=== PATIENT | male | born 1965 | race Caucasian/White ===

== ENCOUNTER 2018-12-02 15:29 | Inpatient (IN) | payer OTHER ==
[~2018-12-02] VITALS: Ht 175.3 cm; Wt 75.8 kg
--- NOTE | ~2018-12-02 | HC ---
[facility] [place] [address] CONSULTATION Name: TASIASEPIDEH Room #: 353-[facility] IN M.R.#: [id number] Admission: 12/02/18 ������������������ Attend Phys: Oscar Sanchez Discharge: ������������������ Date of : 65 Report #: [id number] THIS REPORT FOR: //name// CC: Oscar Cruz DATE OF SERVICE: 12/04/2018 HISTORY OF PRESENT ILLNESS: A 53-year-old male we are asked to see for withdrawal and alcohol and substance dependence. The patient has been here for several days now getting Ativan at a pretty good rate p.r.n., saying that he is not calm, he is not doing well, even though he is not showing signs of alcohol withdrawal. He has gotten significant amount of Ativan and actually fell today. He was so out of it. He is now in soft restraints to keep him safe. The patient is not able to discuss with me significant amount of features. He does state he has some abdominal discomfort. He feels like his skin is crawling and he has general aches. He will not tell me how much opiates he was on, but he says they were not long-acting opiates, they were not Suboxone and it was not methadone. He says it was mostly Percocet and he was on Ativan and BuSpar, though his report is somewhat unreliable given his state today since he is a little bit confused. The patient says he has MS and that is why he was given these medications, which does not seem to fit his presentation. ALLERGIES: No known drug allergies. FAMILY PSYCHIATRIC HISTORY: Denies. SOCIAL HISTORY: The patient is a retired welder production line arc. He is . He has no support in town. He does not routinely see a psychiatrist. He does not feel that he is doing well. He also disagreed with me that he was getting medications to help with withdrawal. The patient is mildly confused. MENTAL STATUS EXAM: The patient is alert. He is oriented to being in a hospital, but he could not tell me which one and he missed the date, did not know that today was a holiday. He was confused and again had a recent fall and he is restless, but his vital signs are stable. As a matter of fact, over 24 hours, he has not been tachycardic and his blood pressure was normal. He does not appear to be showing severe alcohol withdrawal, nor does he have any dilated pupils. At best, he has some mild piloerection. He does complain of abdominal pain and generalized aches, however. The patient has received significant amount of medications over the past 24 hours. He has received 20 mg Ativan in the last 24 hours. The patient is not agitated. He is restless, is confused. He shows no rigidity or tremors. His thought process is perseverative and circumstantial thought [address] [address] CONSULTATION Name: TASIASEPIDEH Room #: 353-[facility] IN M.R.#: [id number] Admission: 12/02/18 ������������������ Attend Phys: Oscar Sanchez Discharge: ������������������ Date of : 65 Report #: [id number] content. He did not exhibit any type of hallucinations at this time. INSIGHT AND JUDGMENT: Impaired. IMPRESSION: AXIS I: 1. Delirium. 2. Possible alcohol and opiate withdrawal. AXIS II: Deferred. AXIS III: He says MS as his past history. AXIS IV: Severe. AXIS V: Global Assessment of Functioning currently 30%. PLAN: I think what we have seen here is, he is not showing significant vital sign disturbances. He is not showing a lot of classical features of alcohol withdrawal. His state of being uncomfortable might be more related to actually more of the opiate withdrawal side. Either way, I think the amount of Ativan and benzodiazepines is an indication that more is not necessarily better. We need to reduce the amount of benzodiazepines he is getting. So, we will try and do so by using Seroquel on a regular basis to calm down his agitation and some of his delirium, his agitation could be helped with a scheduled amount. So, we will add some Seroquel scheduled and hold it if he is sedated. I believe use of low dose antipsychotic will help with reducing the amount of Ativan and benzodiazepines and that will actually help his mental status improve at this point, as I do not see significant concern for delirium tremens. This is not severe alcohol or benzodiazepine withdrawal at this point. So, we are seeing no evidence of vital signs being elevated. No tremor, no diaphoresis. At best, this is some opiate withdrawal where he is feeling uncomfortable, but we have to be cutting back on his benzodiazepines rather than an increasing them, so you will see my orders reflect that goal by reducing the frequency of the available Ativan and also using Seroquel. We will have IM Haldol just in case for severe agitation only. We will stop the Librium. Do not use Ambien. Thank you for the consult. ��������������������������������������������� ���������������������������������������� By: ��������������������������������������������� 0925 16 Tim Velazquez MD /makenzie
[2018-12-02 16:11] LABS: ABSOLUTE NEUTROPHILS 16.4 thou/uL (1.4-8.2); BASOPHILS 0.4 % (0.0-2.0); HEMATOCRIT 41.4 % (42.0-52.0); HEMOGLOBIN 14.7 gm/dL (14.0-18.0); LYMPHOCYTES 7.6 % (24.0-44.0); MCH 33.5 pg (26.0-34.0); MCHC 35.6 g/dL (28.0-37.0); MCV 94.1 fL (80.0-100.0); MONOCYTES 6.8 % (1.0-8.0); PLATELET COUNT 269 thou/uL (150-400); POLYS 85.2 % (36.0-66.0); RDW 13.4 % (10.5-14.5); WBC 19.3 thou/uL (4.0-11.0)
[2018-12-02 16:25] LABS: ANION GAP 12 mmol/L (7-16); BUN 23 mg/dL (7-18); CALCIUM 10.5 mg/dL (8.5-10.1); CHLORIDE 98 mmol/L (98-107); CO2 27 mmol/L (21-32); CREATININE 0.9 mg/dL (0.7-1.3); GLUCOSE 106 mg/dL (74-106); POTASSIUM 3.7 mmol/L (3.5-5.1); SODIUM 137 mmol/L (136-145)
[2018-12-02 16:33] LABS: ALBUMIN 4.2 g/dL (3.4-5.0); LIPASE 80 U/L (73-393); SALICYLATE 3.7 mg/dL (2.8-20.0); SGOT 44 U/L (15-37); SGPT 31 U/L (30-65); TOTAL BILIRUBIN 1.9 mg/dL (<0.1-1.0); TOTAL PROTEIN 7.4 g/dL (6.4-8.2); TROPONIN-I <0.06 ng/mL (<0.06)
[2018-12-02 16:46] LABS: PHOSPHORUS 3.2 mg/dL (2.5-4.9)
[2018-12-02 17:00] VITALS: BP 138/87
[2018-12-02] MEDS ORDERED: FLEXERIL PO (17:02)
[2018-12-02] MEDS ORDERED: TRAMADOL 50 MG50 MG PO (17:03)
[2018-12-02] MEDS ORDERED: NEURONTIN 300300 M1 PO (17:03)
[2018-12-02] MEDS ORDERED: HYDROXYZINE HCL25 M1 PO (17:03)
[2018-12-02] MEDS ORDERED: ANTIVERT25 MG PO (17:03)
[2018-12-02] MEDS ORDERED: ELIQUIS5 MG PO (17:04)
[2018-12-02] MEDS ORDERED: BUSPIRONE HCL10 MG PO (17:04)
[2018-12-02] MEDS ORDERED: GABAPENTIN 100100 MG PO (17:04)
[2018-12-02] MEDS ORDERED: PEPCID20 MG PO (17:04)
[2018-12-02] MEDS ORDERED: ULTRAM 50MG TAB50 MG PO (17:04)
[2018-12-02] MEDS ORDERED: LYRICA 75 MG CA75 MG PO ×2 (17:05)
[2018-12-02 17:30] VITALS: BP 146/101
[2018-12-02 17:42] LABS: FOLIC ACID 15.9 ng/mL (8.6-58.9)
[2018-12-02 19:15] VITALS: BP 126/84
--- NOTE | 2018-12-02 19:27 | NUR ---
Patient arrived from ER via cart. Able to transfer with moderate assist to bed. Patient unsteady on feet. VSS. SR / ST with PVCs on telemetry. Alert and oriented x4. Pleasant and cooperative. Reports some anxiety. CIWA as ordered and treated with PRN Ativan. Banana bag infused, now IVF as ordered. Admission history and education completed. Bed alarm on, yellow socks and fall band in place. Fall precautions in place. Patient up with heavy one assist and gait belt to bathroom. Too early to determine progression towards POC. Will continue to monitor.
--- NOTE | 2018-12-02 22:00 | NUR ---
PATIENT BEHAVIOUR ESCALATING. FREQUENTLY SETTING OFF BED ALARM, UNABLE TO REASON WITH AND BECOMING VERBALLY AND PHYSICALLY COMBATIVE. sECURITY CALLED FOR ASSISTANCE. ORDERS RECEIVED FROM PROVIDER. NURSING OVERHEAD CRANE OPERATOR DURGA NOTIFIED, ORDERS RECEIVED. PATIENT PLACED ON BILATERAL SOFT WRIST RESTRAINTS APPLIED. LORAZEPA M AND HALDOL GIVEN.
[2018-12-02 23:30] VITALS: BP 106/62
[2018-12-03 03:50] VITALS: BP 103/60
--- NOTE | 2018-12-03 04:15 | NUR ---
Patient making slow progress towards outcome goals. CIWA 9-17 range, now off restraints, medicated with Lorazepam every 2 hours. Vital signs and rhythm stable. IVfluids infusing. Fall precautions in place.
[2018-12-03 06:33] LABS: HEMATOCRIT 37.1 % (42.0-52.0); HEMOGLOBIN 12.9 gm/dL (14.0-18.0); MCH 33.3 pg (26.0-34.0); MCHC 34.7 g/dL (28.0-37.0); RBC 3.87 mil/uL (4.50-6.00); RDW 13.4 % (10.5-14.5); WBC 9.5 thou/uL (4.0-11.0)
[2018-12-03 06:44] LABS: CREATININE 0.9 mg/dL (0.7-1.3); POTASSIUM 3.3 mmol/L (3.5-5.1)
[2018-12-03 06:58] LABS: CALCIUM 7.8 mg/dL (8.5-10.1)
[2018-12-03 07:30] VITALS: BP 119/63
[2018-12-03 11:30] VITALS: BP 99/57
[2018-12-03 16:17] VITALS: BP 105/73
--- NOTE | 2018-12-03 18:01 | NUR ---
Assumed care of Pt at 0700. Pt alert and oriented x2 in no acute distress. CIWA 13-15. incontinent. SR on telemetry. vitals stable. small appetite. calls out appropriately at times. will cont to monitor.
[2018-12-03 19:25] VITALS: BP 115/83
[2018-12-04] VITALS (7 sets, daily range): BP systolic 120–139; BP diastolic 75–91
--- NOTE | 2018-12-04 05:01 | NUR ---
ASSUMED CARE OF PATIENT AROUND MIDNIGHT. PATIENT SLEEPING UPON ASSESSMENT, AROUSABLE TO STIMULI, BUT UNABLE TO STAY AWAKE TO ANSWER QUESTIONS. NOT ABLE TO SCORE CIWA AT THAT TIME. ATTEMPTED TO ASSESS AGAIN AT 0200, PATIENT AGAIN UNABLE TO REMAIN AWAKE. 0400 ASSESSMENT, PATIENT C/O 8/10 HEADACHE, PINS/NEEDLES IN LOWER EXTREMITIES, NAUSEA, MODERATE ANXIETY, SLIGHT AGITATION, AND PATIENT STATED IT WAS WEDNESDAY: CIWA SCORE OF 17. LIBRIUM GIVEN, LORAZEPAM HELD. REPORTING COORDINATOR INFORMED. PATIENT IS MAKING SOME PROGRESS TOWARD GOALS, WILL CONTINUE TO MONITOR.
[2018-12-04 06:24] LABS: CALCIUM 7.5 mg/dL (8.5-10.1); CREATININE 0.6 mg/dL (0.7-1.3); PHOSPHORUS 2.6 mg/dL (2.5-4.9); POTASSIUM 3.4 mmol/L (3.5-5.1)
--- NOTE | 2018-12-04 07:12 | NUR ---
AT 0700, PATIENT'S BED ALARM SOUNDED. 2 information security associate AND 2 RNs RESPONDED, FIRST CULTURIST ABOUT TO ENTER ROOM, SOUND CAME FROM ROOM SOUNDING LIKE A THUD. PATIENT FOUND ON FLOOR. ALL 4 SIDE RAILS WERE UP AND ALL WERE CLOSED TO THE MIDDLE OF THE BED. PATIENT HAD CLIMBED OVER RAIL. PATIENT'S GAITBELT WAS APPLIED AND STAFF ASSISTED THE PATIENT WITH STANDING AND MOVING BACK TO BED. PATIENT SETTLED AGAIN AND ASSESSMENT DONE CHARTED IN POST-FALL INTERVENTION. NO CHANGE IN MENTAL STATUS, PATIENT C/O BACK PAIN RATED 9/10. NO ABRASIONS NOTED, NO BRUISING AT THIS TIME. TONSORIAL ARTIST ARCADIO CONTACTED. RESTRAINTS INITIATED. VITAL SIGNS NEAR BASELINE.
--- NOTE | 2018-12-04 13:22 | EKG ---
[address] [place] [place] [address] ELECTROCARDIOGRAM REPORT Name: SEPIDEH DOZIER Room #: 353-P AD[facility] IN M.R.#: [id number] ������������������ Admission: 12/02/18 ������������������ Attend Phys: Oscar Sanchez Discharge: ������������������ Date of : 65 Report #: [id number] ����������������������������������������������������������������� [id number] THIS REPORT FOR: //name// [facility] ED Test Date: 2018-12-02 Test Time: 15:40:28 Pat Name: SEPIDEH DOZIER Department: Room: 353 Gender: M Clearance Rep: WG : 1965 Requested By: Salazar Pardo Order Number: [id number] MD: Yovani Solorzano Measurements Intervals [place] Rate: 103 P: 65 WI: 144 QRS: 57 QRSD: 84 T: 51 QT: 341 QTc: 447 Interpretive Statements Sinus tachycardia Otherwise normal tracing No previous ECG available for comparison Electronically Signed On 12-04-2018 13:22:28 CDT by Yovani Solorzano [email or web address] ��������������������������������������������� <ELECTRONICALLY SIGNED> ���������������������������������������� By: Yovani Solorzano MD, [facility] ��������������������������������������������� 12/04/18 1322 1540 1540 Yovani Solorzano MD, FACC /EPI
--- NOTE | 2018-12-04 15:33 | NUR ---
PATIENT CONT OON CIWA PROTOCOL WITH REDUCE AMOUNT OF LORAZEPAM. HE HAS NOT SLEPT ALL DAY. HE CONT ON RESTRAINTS. KEEPS FIGHTING. HE ATTEPTED TO PULL OUT HIS CATHETER. HE DID SUCCESSFULLY PULL OUT HIS IV.TAKES OFF HIS CLOTHS AND CONT ATTEMPT TO LEAVE THE BED. HE IS NOT EASILY REDIRECTED. CONT ON RESTRAINTS AND HAVE TO BE REAPPLIED SO OFTEN HE KEEPS ON FIGHTING TO TAKE THEM OFF. HE HAS BEEN GIVEN MEDS PRESCRIBED BUT SO FAR NO IMPROVEMENT.
[2018-12-04 23:00] LABS: URINE BILIRUBIN NEGATIVE (Negative); URINE BLOOD 3+ (Negative); URINE CLARITY CLEAR; URINE COLOR YELLOW; URINE GLUCOSE-RANDOM* NEGATIVE (Negative); URINE KETONES NEGATIVE (Negative); URINE NITRITE-REFLEX NEGATIVE (Negative); URINE PROTEIN (DIPSTICK) NEGATIVE (Negative); URINE UROBILINOGEN 0.2 E.U./dl (0.2-1.0)
[2018-12-04 23:10] LABS: URINE LEUKOCYTES-REFLEX 1+ (Negative)
[2018-12-04 23:12] LABS: AMP/METHAMP Negative (Negative); BARBITURATES Negative (Negative); BENZODIAZEPINES POSITIVE (Negative); COCAINE Negative (Negative); METHADONE Negative (Negative); OPIATES Negative (Negative); PCP Negative (Negative)
[2018-12-04 23:44] LABS: BACTERIA-REFLEX 1-9 Few /HPF (None Seen); CASTS None Seen /LPF (None Seen); MUCUS 0-3 Light strn/LPF (None Seen); SQUAMOUS 0-3 Few /LPF (0-3)
[2018-12-04 23:45] LABS: CRYSTALS None Seen /LPF (None Seen)
[2018-12-05 04:10] VITALS: BP 138/80
--- NOTE | 2018-12-05 04:16 | NUR ---
RESTRAINT ORDER HAS BEEN RENEWED. SPOKE WITH SHEREE ERVIN AND LOOKED AT HR AND OTHER VITALS. SAID TO GIVE SOME INSTRUCTIONS TO TRY TO TRIAL HIM OFF. PT SLEPT MOST OF SHIFT AND HAD TO BE AROUSED TO TAKE EVENING MEDICATION. THE 0600 OXYCODONE WILL BE HELD TO SEE IF THAT HELPS INCREASE PTS ALERTNESS. COLLECTED URINE FROM AN ORDER THAT WAS GIVEN ON THE . AWAITING RESULTS. HOURLY ROUNDING AND Q2 CHECKS FOR THE RESTRAINTS. HR EARLIER IN SHIFT WERE IN 110-120 RANGE. OVERNIGHT THEY HAVE BEEN SB IN THE 50-60'S.
[2018-12-05 07:37] VITALS: BP 122/80
[2018-12-05 11:20] VITALS: BP 108/65
[2018-12-05 15:28] VITALS: BP 112/78
--- NOTE | 2018-12-05 16:04 | NUR ---
Assumed care of Pt at 0700. Pt AOX3 drowsy but following commands appropriately. succesful with restraint trials - now off restraints since 0800. mentation improving. no attempts to get out of bed thus far. not pulling at lines. eating meals appropriately. vitals stable. will cont to monitor. all fall precautions in place. frequent rounding. pt progressing toward poc goals.
[2018-12-05 19:00] VITALS: BP 98/60
[2018-12-06 04:18] VITALS: BP 94/60
--- NOTE | 2018-12-06 04:29 | NUR ---
FOLLOWING POC WITH PO MEDICATIONS AND PRN SEROQUEL. PT REQUESTED SANDWICH TRAY, ATE AND WENT TO SLEEP. AT 0100 PT TRYING TO CRAWL OUT OF BED AND SET BED ALARM OFF. PT ASKED FOR OXY AND EXPLAINED TO PT THAT IT WAS GIVEN AT 2030 AND NEXT DOSE IS AT 0600. PUT PT BACK TO BED, AND WITHIN 10 MINUTES LATER SET BED ALARM OFF. GAVE PT PRN HALIDOL AND PT AGITATION DECREASED AND PT IS NOW SLEEPING. WILL CONTINUE TO MONITOR.
[2018-12-06 06:58] VITALS: BP 95/62
--- NOTE | 2018-12-06 10:11 | NUR ---
ASSESSMENT: CM REVIEWED CHART AND MET WITH PATIENT AT THE BEDSIDE. PT WAS ADMITTED FOR ALCOHOL WITHDRAWAL. PT REPORTS HE WAS AT [facility] SN[facility] AND WAS GOING TO TRANSITION TO LIVING THERE AFTER. CM RECEIVED A VM FROM [facility] STATING THEY CANNOT ACCEPT PATIENT BACK. CM LEFT VM FOR LIASON FROM [facility] TO CONTACT CM TO FURTHER DISCUSS. PT WAS UPSET WHEN HE FOUND OUT THIS INFORMATION STATING HE WILL HAVE NO WHERE TO LIVE AND ALL OF HIS STUFF IS THERE. CM DISCUSSED HOW ANOTHER REFERRAL COULD BE SENT TO AN ALTERNATE SNF TO SEE IF THEY CAN ACCEPT. PT HAD NO PREFERENCE OF REFERRAL. CM FAXED NOTIFIED ARTIST MODEL TO SEND REFERRAL TO [facility]. CM WILL CONTINUE TO FOLLOW TO ASSIST NEEDED.
--- NOTE | 2018-12-06 10:34 | NUR ---
[facility] sent referral to [facility] for SNF, patient to dc today. [facility] contacted [facility] to make sure faxed referral was received.
[2018-12-06 11:09] VITALS: BP 111/77
[2018-12-06 15:17] VITALS: BP 97/61
[2018-12-06 19:47] VITALS: BP 120/82
[2018-12-07 04:11] VITALS: BP 117/73
--- NOTE | 2018-12-07 04:47 | NUR ---
ASSUMED CARE OF PT AT 1900. VS STABLE DOCUMENTED. AGITATED THROUGOUT SHIFT. GAVE SEVERAL PRNs W/ MINIMAL IMPROVEMENT. CIWA SCORES 7-9 DOCUMENTED. PT HAS BEEN RESTLESS ALL NIGHT, TRYING TO GET OUT OF BED ON HIS OWN, ANGRY W/ STAFF ABOUT BED ALARM AND ASSISTANCE TO BSC/BR. PT DENIED FEELING UNSTEADY EVEN THOUGH HE WOULD HAVE FALLEN W/OUT STAFF ASSIST. CURRENTLY RESTING WITH BED ALARM ON, CALL LIGHT IN REACH AND BED IN LOW,LOCKED POSITION. PROGRESSING TOWARDS POC GOALS.
[2018-12-07 07:49] VITALS: BP 94/63
[2018-12-07 08:55] LABS: HEMATOCRIT 40.8 % (42.0-52.0); HEMOGLOBIN 14.2 gm/dL (14.0-18.0); MCH 33.1 pg (26.0-34.0); MCHC 34.9 g/dL (28.0-37.0); MCV 94.6 fL (80.0-100.0); RBC 4.31 mil/uL (4.50-6.00); RDW 13.5 % (10.5-14.5); WBC 9.9 thou/uL (4.0-11.0)
[2018-12-07 09:03] LABS: CREATININE 0.8 mg/dL (0.7-1.3); MAGNESIUM 1.8 mg/dL (1.8-2.4); POTASSIUM 3.8 mmol/L (3.5-5.1)
[2018-12-07 11:34] VITALS: BP 101/69
--- NOTE | 2018-12-07 11:49 | NUR ---
dp sent new SNF referral to [facility] (fax [phone]). dp called facility to make certain they received the SNF Referral, dp left voicemessage to admissions dept letting them know we sent referral and left cm number if they did not receive or have any questions.
--- NOTE | 2018-12-07 14:12 | NUR ---
on-going assessmeNT: CM SPOKE WITH PATIENT AND HE WAS AGREEABLE WITH REFERRAL TO [facility] BACKUP IF [facility] COU[facility] NOT ACCEPT HIM. DEIRDRE SPOKE WITH INES IN CM DEPT WHO WENT AND MET WITH PATIENT AND ASSISTED FAR SUBMITTING FOR A MEDICAID APPLICATION AND WAS ABLE TO FIND OUT THAT PATIENT HAS A DCN # ALREADY SO JUST NEEDED TO SEND IN FOR REINSTATEMENT. CM NOTIFIED LIASON AT [facility] THAT THIS WAS COMPLETED AND PT WAS AGREEABLE AND BRITT FROM [facility] STATING THEY CAN ACCEPT THE PATIENT BACK FOR SNF. PT STATES HE PREFERS TO GO BACK TO [facility] BECAUSE THAT IS WHERE ALL OF HIS STUFF IS. DEIRDRE NOTIFIED BEDSIDE RN AND PROVIDED WITH THE NUMBER FOR REPORT. CHART COPY WAS ORDERED AND CM NOTIFIED EAR MOLD LABORATORY TECHNICIAN. GRATED CHEESE MAKER IS FAXED DISCHARGE PAPERWORK AND ARRANGING TRANSPORTATION. PT REPORTS NO FURTHER QUESTIONS FOR DEIRDRE AT THIS TIME.
--- NOTE | 2018-12-07 14:30 | NUR ---
DISCHARGE ORDERS RECEIVED. PATIENT DISCHARGING TO [facility]. CHART COPIED PER SALT OPERATOR. DISCHARGE ORDERS FAXED TO [facility] AND/OR [facility], VERIFIED RECEIVED. TRANSPORTATION SET UP PER [facility] [phone]. UNIT RN NOTIFIED AND CONTACT NUMBER PROVIDED FOR REPORT. UNIT CM/SW AWARE.
--- NOTE | 2018-12-07 20:35 | NUR ---
RECIEVED ORDER FOR DC ALONG WITH PLACEMENT. ADVISED PT. PT VERY THRILLED. COMPLETED DC. ASSESSMENT CHARTED. VSS. PT LEFT VIA TRANSPORT TO FACILITY WITH ALL BELONINGS. IV AND TELE REMOVED.
== END 2018-12-07 15:22 | DRG 896 ==
LOC: ER 15:29 → EROBS 16:13 → 3W 16:13
PROVIDERS: Emergency Medicine; Internal Medicine; Nurse Practitioner Family; ADMIT Hospitalist
DX: F11.23 Opioid dependence with withdrawal (principal); E43 Unspecified severe protein-calorie malnutrition; F05 Delirium due to known physiological condition; F10.239 Alcohol dependence with withdrawal, unspecified; G35 Multiple sclerosis; K21.9 Gastro-esophageal reflux disease without esophagitis; G62.9 Polyneuropathy, unspecified; F41.9 Anxiety disorder, unspecified; F17.210 Nicotine dependence, cigarettes, uncomplicated; Z86.711 Personal history of pulmonary embolism; Z68.24 Body mass index [BMI] 24.0-24.9, adult; Z79.899 Other long term (current) drug therapy
CPT/HCPCS: 10879

== ENCOUNTER 2019-01-11 06:48 | Emergency (ER) | payer OTHER ==
[~2019-01-11] VITALS: Ht 177.8 cm; Wt 74.8 kg
[~2019-01-11 06:48] MED LIST: ANTIVERT25 MG PO; BUSPIRONE HCL10 MG PO; ELIQUIS5 MG PO; FLEXERIL PO; GABAPENTIN 100100 MG PO; HYDROXYZINE HCL25 M1 PO; LYRICA 75 MG CA75 MG PO; NEURONTIN 300300 M1 PO; PEPCID20 MG PO; TRAMADOL 50 MG50 MG PO; ULTRAM 50MG TAB50 MG PO
[2019-01-11 06:50] VITALS: BP 120/68
[2019-01-11] MEDS ORDERED: TRAMADOL 50 MG50 MG PO (07:28)
[2019-01-11] MEDS ORDERED: ATIVAN1 MG PO (07:28)
--- NOTE | 2019-01-11 10:17 | NUR ---
SPOKE WITH BRIDGETTE JORDAN ABOUT PLACEMENT-PT SAYS HE WOULD AGREE TO GO BACK TO [facility]. REFUSES TO GO TO [facility] PT SAYS HE WONT BE ABLE TO PHYSICALLY GET OUT OF THE [facility] AT THE SCHEDULED AM RELEASE. MESSAGE LEFT ON CHAU-MAT MACHINE OPERATOR DIPESH REGARDING PT RETURNING TO FACILITY, AWAITING RETURN CALL.
[2019-01-11 12:26] VITALS: BP 101/59
--- NOTE | 2019-01-11 12:31 | NUR ---
CASE MANAGEMENT AT BEDSIDE.
--- NOTE | 2019-01-11 12:54 | NUR ---
Met with patient at beside and working with social research assistant. Patient is not allowed back at the SNF facility he left on 01/06 to live with a friend. Pt states he can no longer stay with the friend or s/o. Pt asked to ambulate to the BR and was assisted by ED staff. Upon return to room pt agreed to cab voucher to [facility]. Notified ED staff and WATCH CRYSTAL EDGE GRINDER.
== END 2019-01-11 12:58 | disposition home or self-care (01) ==
LOC: ER 06:48 → EROBS 10:50 → ER 12:58
DX: F41.0 Panic disorder [episodic paroxysmal anxiety] (principal); G35 Multiple sclerosis; G89.29 Other chronic pain; F10.129 Alcohol abuse with intoxication, unspecified; Y90.9 Presence of alcohol in blood, level not specified; K21.9 Gastro-esophageal reflux disease without esophagitis; G62.9 Polyneuropathy, unspecified; Z59.0 Homelessness; Z86.711 Personal history of pulmonary embolism